=== PATIENT | male | born 1990 | race Hispanic/Latino ===

== ENCOUNTER 2024-02-14 16:41 | Emergency (ER) | payer OTHER ==
[~2024-02-14] VITALS: Ht 170.2 cm; Wt 77.1 kg
[2024-02-14 16:50] VITALS: BP 136/86
[2024-02-14] MEDS ORDERED: LIDOcaine HCl 1% (Local Anesth.) 20 ML VIAL STI STA (16:51)
[2024-02-14] MEDS ORDERED: POVIDONE IODINE 0.5 OZ/BTL TOP ONE (16:55)
[2024-02-14] MEDS ORDERED: Diph, Acellular Pertussis, Tet 0.5 ML/VIAL (Tdap) SDV IM ONE (16:55)
[2024-02-14] MEDS ORDERED: ceFAZolin Sodium 1 GM in SODIUM CHLORIDE 0.9% 50 ML IV ONE (16:55)
[2024-02-14] MEDS ORDERED: ceFAZolin 1 GM/VIAL SDV IM ONE (18:05)
[2024-02-14] MEDS ORDERED: STERILE WATER 10 ML/VIAL SDV IM ONE (18:05)
[2024-02-14] MEDS ORDERED: AMOX/K CLAV875 M1 PO (18:09)
[2024-02-14 18:29] VITALS: BP 136/86
== END 2024-02-14 18:32 | disposition home or self-care (01) | DRG 605 ==
LOC: ED 16:41
PROC: 0HQ1XZZ Repair Face Skin, External Approach (ICD-10-PCS; principal; 2024-02-14)
PROC: 0CQ4XZZ Repair Buccal Mucosa, External Approach (ICD-10-PCS; 2024-02-14)
DX: S01.412A Laceration without foreign body of left cheek and temporomandibular area, initial encounter (principal); E11.9 Type 2 diabetes mellitus without complications; W45.8XXA Other foreign body or object entering through skin, initial encounter; Y92.149 Unspecified place in prison as the place of occurrence of the external cause